=== PATIENT | male | born 1965 | race Caucasian/White ===

== ENCOUNTER 2020-07-07 12:35 | Outpatient (REF) | payer OTHER, SELFPAY ==
[2020-07-07 13:26] LABS: Blood Urea Nitrogen 27 mg/dL (9-16); Estimated Glomerular Filt Rate > 60
== END 2020-07-07 12:36 | disposition home or self-care (01) ==
LOC: HO.LAB 12:35
PROVIDERS: Visit Provider Internal Medicine
DX: R48.3 Visual agnosia (principal); G31.84 Mild cognitive impairment of uncertain or unknown etiology
CPT/HCPCS: 36415; 82565; 84520